=== PATIENT | female | born 1955 | race Caucasian/White ===

== ENCOUNTER → 2022-04-27 12:54 | Outpatient (CLI) | payer MEDICARE, OTHER, SELFPAY ==
--- NOTE | 2022-04-27 13:00 | DI.MRI.S_ITS ---
PROCEDURE: MR SHOULDER RT WO CON INDICATIONS: RIGHT SHOULDER PAIN TECHNIQUE: Noncontrast oblique coronal T2 fast spin echo with fat saturation, oblique sagittal T1 spin echo and T2 fast spin echo with fat saturation, axial T1 spin echo and T2 fast spin echo with fat saturation through the shoulder. COMPARISON: Outside Film, CR, XR SHOULDER 2+ VIEWS RIGHT, 10/21/2021, 9:15. FINDINGS: Image quality: Images are mildly degraded by patient motion. Diagnostic information is obtained. Rotator cuff: There is marked heterogeneity of the distal supraspinatus tendon with high-grade partial articular sided tearing at the critical zone and probable focal full-thickness tearing. There is moderate infraspinatus tendinosis. The teres minor tendon is intact. Moderate subscapularis tendinosis is seen with low-grade intrasubstance tearing at the superior insertion. There is no significant rotator cuff muscle atrophy. Bones and bursae: No acute trabecular bone injury or fracture. Chronic traction cystic changes are seen at the posterosuperior head and greater and lesser tuberosities near the rotator cuff tendon insertions. No large full-thickness cartilage defect in the glenohumeral joint, although evaluation of the articular cartilages is compromised by patient motion. [id number] degenerative changes are seen in the acromioclavicular joint. There is a small amount of fluid in the subacromial/subdeltoid bursa. No significant glenohumeral effusion is seen. Capsule and soft tissues: There is mild diffuse labral degeneration without a displaced labral tear. The proximal biceps long head tendon demonstrates mild tendinosis. There is partial effacement of the normal fat signal in the rotator interval. The glenohumeral ligaments are grossly intact. IMPRESSION: 1. 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 Findings are superimposed on moderate to severe supraspinatus and infraspinatus tendinosis. 2. Moderate subscapularis tendinosis with low-grade partial intrasubstance tearing at the superior insertion. 3. Mild biceps long head tendinosis. 4. Mild diffuse labral degeneration. 5. Mild to moderate acromioclavicular joint osteoarthrosis. 6. Small subacromial/subdeltoid bursal effusion likely communicates with the glenohumeral joint space. Approved by: Hernan Arreola M.D. on 04/27/2022 at 20:32
== END ==
PROVIDERS: Referring Provider Orthopaedic Surgery; Visit Provider Orthopaedic Surgery
DX: M75.111 Incomplete rotator cuff tear or rupture of right shoulder, not specified as traumatic (principal); M19.011 Primary osteoarthritis, right shoulder
CPT/HCPCS: 73221